=== PATIENT | male | born 1990 | race Caucasian/White ===

== ENCOUNTER 2016-08-07 19:25 | Emergency (ER) | payer OTHER ==
[2016-08-07 20:20] VITALS: BP 144/80
== END 2016-08-07 20:20 | disposition home or self-care (01) ==
LOC: ED 19:25
DX: L03.115 Cellulitis of right lower limb (principal)

== ENCOUNTER 2019-04-05 04:58 | Emergency (ER) | payer SELFPAY ==
[~2019-04-05] VITALS: Ht 185.4 cm; Wt 109.5 kg
[2019-04-05 05:03] VITALS: Ht 185.4 cm; Wt 109.5 kg
[2019-04-05 06:52] VITALS: BP 125/67
== END 2019-04-05 06:52 | disposition home or self-care (01) ==
LOC: ED 04:58
DX: J11.1 Influenza due to unidentified influenza virus with other respiratory manifestations (principal); Z88.0 Allergy status to penicillin
CPT/HCPCS: 87804; J1885

== ENCOUNTER 2019-08-01 23:59 | Emergency (ER) | payer SELFPAY ==
[~2019-08-01] VITALS: Ht 185.4 cm; Wt 117.0 kg
[2019-08-02 00:08] VITALS: BP 120/78; Ht 185.4 cm; Wt 117.0 kg
== END 2019-08-02 01:09 | disposition home or self-care (01) ==
LOC: ED 23:59
DX: M25.512 Pain in left shoulder (principal); Z88.0 Allergy status to penicillin
CPT/HCPCS: J1885; Q0092